=== PATIENT | female | born 2005 | race Caucasian/White ===

== ENCOUNTER 2024-11-16 10:33 | Emergency (ER) | payer MEDICAID, SELFPAY ==
--- NOTE | ~2024-11-16 | US_ITS ---
EXAMINATION: US FIRST TRIMESTER OB HISTORY: vaginal bleeding in TECHNIQUE: Endovaginal scanning was performed. FINDINGS: There is a single intrauterine gestation. A crescentic hypoechoic area seen adjacent to the gestational sac measuring 9 x 3 x 5 mm, compatible with an implantation bleed. AUA = 5 weeks 6 days NESTOR(AUA) = 07/13/2025 LMP = 10/06/2024 GA(LMP) = 5 weeks 6 days NESTOR(LMP) = 07/13/2025 CRL: No pole is identified at this time. Yolk Sac: seen Right ovary: The right ovary measures 3.4 x 3.0 x 2.2 cm and is unremarkable. Left ovary: The left ovary measures 4.1 x 1.4 x 2.3 cm and is unremarkable. Cul-de-sac: There is a small amount of fluid in the cul-de-sac. US/US OB <= 14 weeks fetus IMPRESSION: 1. Single intrauterine of estimated gestational age 5 weeks, 6 days. No pole is identified at this time. Follow-up is recommended. 2. Findings are suggestive of a 9 x 3 x 5 mm implantation bleed. Electronically signed by: Gucci Rivera MD 11/16/2024 03:02 PM EDT
--- NOTE | 2024-11-16 10:48 | ED_ITS ---
HPI - General Adult General Chief complaint: OB Stated complaint: 6 Wks Spotting Time Seen by Provider: 11/16/24 14:32 Source: patient and family Mode of arrival: ambulatory Limitations: no limitations History of Present Illness ED Provider: KAREEM MARQUIS narrative: 19 yo female with no PMHshe is approx 6 weeks she is G1 - light brown spotting yesterday slightly more today. No abd pain. Has no OBGYN yet. Patient did recently have intercourse. She has no concerns for STI. No pads no clots complaint: spotting Onset (ago): day(s) (1) Related Data Allergies Allergy/AdvReac Type Severity Reaction Status Date / Time No Known Allergies Allergy Verified 11/16/24 10:51 Review of Systems 2 Review of Systems: Yes all other systems are reviewed and are negative [facility] Past Medical History Attestation statement: The following information was validated with the patient. Medical History No pertinent past medical history Social History Social History (Updated 11/16/24 @ 15:01 by Madina Seo DO) Patient Tobacco Use Status: Never used Tobacco Smoked in Last 30 Days: No Use of substances other than those prescribed or required for medical reasons: No Advance Directives: No Advance Directives Information Provided: No Patient : Yes Physical Exam ED Vital Signs: Vital Signs - 24 hr 11/16/24 10:49 11/16/24 15:08 11/16/24 15:38 Temperature 97.4 F 98.5 F 98.5 F Pulse Rate 80 67 67 Respiratory Rate 16 17 17 Blood Pressure 118/61 110/66 110/66 Pulse Oximetry 100 99 99 Oxygen Delivery Method Room Air Room Air Room Air BMI result Body Mass Index 24.1 Appearance: Alert. Oriented X3. No acute distress. Eyes: Pupils equal, round and reactive to light. ENT: Pharynx normal. Neck: Normal inspection. Neck supple. CVS: Pulses normal. Respiratory: No respiratory distress. Abdomen: Soft and nontender. : os closed, scant brown material on sterile glove Grady HOLBROOK present Skin: Skin warm and dry. Normal skin color. Extremities: No lower extremity edema. Neuro: Oriented X 3. No motor deficit. No sensory deficit. CN2-12 intact Course Course Course Narrative: RME, this is a rapid medical exam performed by Jamie Rome please refer to primary provider for complete H&P- 19 year old female who is G1PO presents for evaluation of vaginal bleeding and spotting starting yesterday. Denies any pain or cramping. She has not yet seen an OBGYN provider but was planning to establish with [facility]. She reportsd being approximately 6 weeks . Plan for labs and a UA Medical Decision Making Medical Decision Making [facility] Narrative: 19 yo female G1 approx 6 weeks at this time will need quant, blood type, US and cervix exam. She denies concern for STI. Pelvic rest. Differential Diagnosis Differential Diagnoses: The differential diagnosis associated with the presentation includes implantation bleed, subchorionic hemorrhage, bleeding post intercourse Admission/Observation Consideration of admission/observation: Escalation of care including admission/observation considered not toxic, no sig bleeding stable for DC Lab Data [facility] Lab Attestation statement: I reviewed the patient's lab results. 11/16/24 11:21 11/16/24 11:21 Labs: Lab Results 11/16/24 11/16/24 Range/Units 11:21 15:09 WBC 7.7 (4.8-10.8) X10*3/uL RBC 4.27 (4.20-5.50) X10*6/uL Hgb 13.2 (12.0-16.0) g/dl Hct 36.5 L (37.0-47.0) % MCV 85.5 (80.0-98.0) fL MCH 30.9 (27.0-33.0) pg MCHC 36.2 H (31.0-35.0) g/dl RDW 12.2 (11.0-16.0) % Plt Count 173 (160-400) X10*3/uL MPV 11.8 (9.4-12.3) fL Immature Gran % (Auto) 0.4 (0.0-0.4) % Neut % (Auto) 69.6 (45-73) % Lymph % (Auto) 22.4 (20-40) % Bath % (Auto) 6.9 (2-11) % Eos % (Auto) 0.3 (0-4) % Baso % (Auto) 0.4 (0-2) % Lymph # (Auto) 1.7 (1.2-4.9) X10*3/uL Bath # (Auto) 0.5 (0.1-1.2) X10*3/uL Eos # (Auto) 0.0 (0.0-0.4) X10*3/uL Baso # (Auto) 0.0 (0.0-0.2) X10*3/uL Abs Immat Gran (auto) 0.03 (0.00-0.03) X10*3/uL Absolute Neuts (auto) 5.4 (2.0-8.3) x10*3/uL Absolute Nucleated RBC 0.000 (0.0-0.012) X10*3/uL Nucleated RBC % (auto) 0.0 (0.0-0.2) /100WBC Sodium 139 (135-145) mmol/L Potassium 3.8 (3.3-5.1) mmol/L Chloride 110 H (96-108) mmol/L Carbon Dioxide 24 (22-29) mmol/L Anion Gap 9 L (12-20) BUN 9 (9-16) mg/dL Creatinine 0.62 (0.5-1.4) mg/dL Estim Creat Clear Calc 130.2 Estimated GFR > 60 Random Glucose 88 (60-115) mg/dL Calcium 9.3 (8.4-10.2) mg/dL Total Bilirubin 0.8 (0.0-1.0) mg/dL AST 15 (5-31) U/L ALT 16 (0-31) U/L Alkaline Phosphatase 46 (39-117) U/L Total Protein 6.6 (6.5-8.0) g/dL Albumin 4.4 (3.5-5.0) g/dL Lipase 17 (8-78) U/L Beta HCG, Quant 21635 mIU/mL Urine Color Yellow Urine Appearance Clear Urine pH 7.0 (5.0-9.0) Ur Specific [place] <= 1.005 (1.005-1.025) Urine Protein Negative (Neg-Trace) mg/dL Urine Glucose (UA) Negative (Negative) mg/dL Urine Ketones Negative (Negative) mg/dL Urine Blood Small (1+) H (Negative) Urine Nitrite Negative (Negative) Ur Leukocyte Esterase Negative (Negative) Urine RBC 0-2 (0-2) /HPF Urine WBC 0-5 (0-5) /HPF Ur Squamous Epith Cells 0-2 (0-2) /HPF Urine Bacteria None Seen (None Seen) Hyaline Casts 0-2 (0-2) /LPF Blood Type A Positive Independent Interpretation I performed an independent interpretation of an: Ultrasound (sac ) Radiology Impression Discussion of test interpretation with radiology: I have reviewed the radiologist's reading. Independent Historian Clinical information obtained from an independent historian. History obtained from or confirmed by: Parent External Record Review External record reviewed: Outpatient record Discharge Plan Discharge Clinical Impression: Vaginal bleeding Patient Disposition: Home, Self-Care Instructions: Threatened Miscarriage (ED) Additional Instructions: [place] [address] blood type is A positive your ultrasound shows implantation bleeding DC instructions: pelvic rest until symptoms improve about 10 days, nothing in vaginal canal, return for pain, fainting, bleeding heavier than a menses or any other concerns REPEAT HCG LEVEL BY TUESDAY WITH OBGYN/URGENT CARE FINDINGS: There is a single intrauterine gestation. A crescentic hypoechoic area seen adjacent to the gestational sac measuring 9 x 3 x 5 mm, compatible with an implantation bleed. AUA = 5 weeks 6 days NESTOR(AUA) = 07/13/2025 LMP = 10/06/2024 GA(LMP) = 5 weeks 6 days NESTOR(LMP) = 07/13/2025 CRL: No pole is identified at this time. Yolk Sac: seen Right ovary: The right ovary measures 3.4 x 3.0 x 2.2 cm and is unremarkable. Left ovary: The left ovary measures 4.1 x 1.4 x 2.3 cm and is unremarkable. Cul-de-sac: There is a small amount of fluid in the cul-de-sac. US/US OB <= 14 weeks fetus IMPRESSION: 1. Single intrauterine of estimated gestational age 5 weeks, 6 days. No pole is identified at this time. Follow-up is recommended. 2. Findings are suggestive of a 9 x 3 x 5 mm implantation bleed. Interventions: ED Discharge Assessment Last Done: 11/16/24 15:38 Print Language: Trinidadian
[2024-11-16 10:49] VITALS: BP 118/61; PULSE 80; RESP 16; TEMP 36.3; O2SAT 100; BMI 24.1
[2024-11-16 11:25] LABS: MANUAL DIFF FLAG NO
[2024-11-16 11:28] LABS: Hematocrit 36.5 % (37.0-47.0); Hemoglobin 13.2 g/dl (12.0-16.0); Imm Gran Abs Auto 0.03 X10*3/uL (0.00-0.03); Imm Gran Pct Auto 0.4 % (0.0-0.4); Lymphocytes Absolute Auto 1.7 X10*3/uL (1.2-4.9); Mean Corpuscular HGB Conc 36.2 g/dl (31.0-35.0); Mean Corpuscular Hemoglobin 30.9 pg (27.0-33.0); Mean Corpuscular Volume 85.5 fL (80.0-98.0); NRBC Abs Auto 0.000 X10*3/uL (0.0-0.012); NRBC Pct Auto 0.0 /100WBC (0.0-0.2); Platelet Count 173 X10*3/uL (160-400); Red Blood Count 4.27 X10*6/uL (4.20-5.50); White Blood Count 7.7 X10*3/uL (4.8-10.8)
[2024-11-16 11:48] LABS: Alanine Aminotransferase 16 U/L (0-31); Albumin Level 4.4 g/dL (3.5-5.0); Alkaline Phosphatase 46 U/L (39-117); Anion Gap 9 (12-20); Aspartate Amino Transferase 15 U/L (5-31); Blood Urea Nitrogen 9 mg/dL (9-16); Calcium 9.3 mg/dL (8.4-10.2); Carbon Dioxide 24 mmol/L (22-29); Chloride 110 mmol/L (96-108); Creatinine Clr Calc Pharmacy 130.2; Estimated Glomerular Filt Rate > 60; Lipase 17 U/L (8-78); Potassium 3.8 mmol/L (3.3-5.1); Sodium 139 mmol/L (135-145); Total Protein 6.6 g/dL (6.5-8.0)
--- NOTE | 2024-11-16 14:31 | PC.NURSE ---
Away for ultrasound at this time.
--- NOTE | 2024-11-16 14:57 | PC.NURSE ---
chaperoned a pelvic exam with DR Seo. Cervical os reported by MD to be closed at this time. Pt asked to provide urine specimen
[2024-11-16 15:08] VITALS: BP 110/66; PULSE 67; RESP 17; TEMP 36.9; O2SAT 99
--- NOTE | 2024-11-16 15:12 | PC.NURSE ---
UA obtained/sent to lab. family bedside for support. plan of care ongoing. call kyle placed within reach.
[2024-11-16 15:15] LABS: Appearance Urine Clear; Glucose Urine UA Negative (Negative); PH 7.0 (5.0-9.0); Specific Gravity - Urine <= 1.005 (1.005-1.025); UMIC TRIGGER UACC YES
[2024-11-16 15:38] VITALS: BP 110/66; PULSE 67; RESP 17; TEMP 36.9; O2SAT 99
== END 2024-11-16 15:43 | disposition home or self-care (01) ==
PROVIDERS: Physician Assistant; Emergency Provider Emergency Medicine
DX: O20.9 Hemorrhage in early pregnancy, unspecified (principal); Z3A.01 Less than 8 weeks gestation of pregnancy; R10.2 Pelvic and perineal pain; Z79.899 Other long term (current) drug therapy
CPT/HCPCS: 36415; 76801; 80053; 81001; 83690; 84702; 85025; 86900; 86901; 99284

== ENCOUNTER → 2024-11-16 10:51 | Outpatient (BNV) | payer MEDICAID, SELFPAY | PROVIDERS: Emergency Provider Emergency Medicine; Visit Provider Radiology Diagnostic Radiology | DX: O26.851 Spotting complicating pregnancy, first trimester (principal); Z3A.01 Less than 8 weeks gestation of pregnancy | CPT/HCPCS: 76801; 76817 ==